=== PATIENT | female | born 1995 | race Caucasian/White ===

== ENCOUNTER 2017-01-23 19:55 | Emergency (ER) | payer MEDICAID ==
[2017-01-23 20:49] LABS: microscopic required? YES; urine erythrocyte TRACE (NEGATIVE)
[2017-01-23 20:59] LABS: BASOPHIL % 0.7 % (0-2); RED CELL DISTRIBUTION WIDTH 14.9 % (11.5-14.5)
[2017-01-23 21:00] LABS: PLATELET COUNT 420 x10^3mcL (130-400)
[2017-01-23 21:12] LABS: CARBON DIOXIDE 30.4 mmol/L (21-32); CHLORIDE SERUM 105 mmol/L (98-107); CREATININE SERUM 0.5 mg/dL (0.6-1.0); GFR1 > 60 mL/min; GLUCOSE SERUM 92 mg/dL (74-106); POTASSIUM SERUM 3.8 mmol/L (3.5-5.1); SODIUM SERUM 142 mmol/L (136-145)
[2017-01-23 21:16] LABS: ALBUMIN 3.9 g/dL (3.4-5.0); ALKALINE PHOSPHATASE 56 U/L (46-116); ALT/SGPT 19 U/L (14-59); AST/SGOT 15 U/L (15-37); BILIRUBIN TOTAL 0.7 mg/dL (0.20-1.00); TOTAL PROTEIN, SERUM 7.2 g/dL (6.4-8.2)
[2017-01-23 21:32] VITALS: BP 100/60
== END 2017-01-23 21:32 | disposition home or self-care (01) ==
LOC: ED 19:55
PROVIDERS: Emergency Medicine
DX: N39.0 Urinary tract infection, site not specified (principal)

== ENCOUNTER 2017-07-23 16:14 | Emergency (ER) | payer MEDICAID ==
[2017-07-23 18:57] LABS: BASOPHIL % 0.4 % (0-2)
[2017-07-23 19:04] LABS: CALCIUM 9.1 mg/dL (8.5-10.1); CARBON DIOXIDE 28.9 mmol/L (21-32); CHLORIDE SERUM 106 mmol/L (98-107); CREATININE SERUM 0.5 mg/dL (0.6-1.0); GFR1 > 60 mL/min; GLUCOSE SERUM 92 mg/dL (74-106); SODIUM SERUM 140 mmol/L (136-145)
[2017-07-23 19:05] LABS: UA SPECIFIC GRAVITY <=1.005 (1.005-1.035); microscopic required? YES; urine erythrocyte TRACE (NEGATIVE)
[2017-07-23 19:07] LABS: PLATELET COUNT 471 x10^3mcL (130-400); RED CELL DISTRIBUTION WIDTH 14.6 % (11.5-14.5)
[2017-07-23 19:08] LABS: ALBUMIN 4.1 g/dL (3.4-5.0); ALKALINE PHOSPHATASE 60 U/L (46-116); ALT/SGPT 21 U/L (14-59); AMYLASE 53 U/L (25-115); AST/SGOT 37 U/L (15-37); BILIRUBIN TOTAL 0.7 mg/dL (0.20-1.00); LIPASE 113 IU/L (73-393); TOTAL PROTEIN, SERUM 7.9 g/dL (6.4-8.2)
[2017-07-23 20:13] VITALS: BP 124/76
== END 2017-07-23 20:13 | disposition home or self-care (01) ==
LOC: ED 16:14
PROVIDERS: Emergency Medicine
DX: R10.13 Epigastric pain (principal); R07.89 Other chest pain; Z90.89 Acquired absence of other organs; Z87.19 Personal history of other diseases of the digestive system
CPT/HCPCS: J1170; J2405; Q0092

== ENCOUNTER 2017-10-14 16:44 | Emergency (ER) | payer MEDICAID ==
[2017-10-14 20:44] LABS: BASOPHIL % 0.4 % (0-2); RED CELL DISTRIBUTION WIDTH 14.2 % (11.5-14.5)
[2017-10-14 20:45] LABS: PLATELET COUNT 416 x10^3mcL (130-400)
[2017-10-14 22:24] VITALS: BP 114/54
== END 2017-10-14 22:24 | disposition home or self-care (01) ==
LOC: ED 16:44
PROVIDERS: Emergency Medicine
DX: O26.891 Other specified pregnancy related conditions, first trimester (principal); R10.30 Lower abdominal pain, unspecified; M54.5 Low back pain; Z87.19 Personal history of other diseases of the digestive system; Z3A.01 Less than 8 weeks gestation of pregnancy
CPT/HCPCS: 36415

== ENCOUNTER 2017-10-30 05:06 | Emergency (ER) | payer MEDICAID ==
[~2017-10-30] VITALS: Ht 157.5 cm; Wt 63.5 kg
[2017-10-30 05:23] VITALS: Ht 157.5 cm; Wt 63.5 kg
[2017-10-30 06:42] LABS: BASOPHIL % 0.6 % (0-2)
[2017-10-30 06:45] LABS: UA SPECIFIC GRAVITY 1.025 (1.005-1.035); microscopic required? YES; urine erythrocyte TRACE (NEGATIVE)
[2017-10-30 06:49] LABS: PLATELET COUNT 443 x10^3mcL (130-400)
[2017-10-30 07:32] VITALS: BP 111/51
== END 2017-10-30 07:32 | disposition home or self-care (01) ==
LOC: ED 05:06
PROVIDERS: Emergency Medicine
DX: O26.891 Other specified pregnancy related conditions, first trimester (principal); O20.0 Threatened abortion; O21.1 Hyperemesis gravidarum with metabolic disturbance; Z3A.01 Less than 8 weeks gestation of pregnancy
CPT/HCPCS: 36415; Q0092; Q0162

== ENCOUNTER 2017-12-20 14:51 | Inpatient (IN) | payer MEDICAID ==
[~2017-12-20] VITALS: Ht 157.5 cm; Wt 63.2 kg
[2017-12-20 16:03] LABS: BASOPHIL % 0.4 % (0-2)
[2017-12-20 16:08] LABS: CALCIUM 9.3 mg/dL (8.5-10.1); CARBON DIOXIDE 14.4 mmol/L (21-32); CHLORIDE SERUM 102 mmol/L (98-107); CREATININE SERUM 0.5 mg/dL (0.6-1.0); GFR1 > 60 mL/min; GLUCOSE SERUM 71 mg/dL (74-106); POTASSIUM SERUM 3.8 mmol/L (3.5-5.1); SODIUM SERUM 136 mmol/L (136-145)
[2017-12-20 16:12] LABS: ALBUMIN 3.7 g/dL (3.4-5.0); ALKALINE PHOSPHATASE 53 U/L (46-116); ALT/SGPT 27 U/L (14-59); AMYLASE 53 U/L (25-115); AST/SGOT 21 U/L (15-37); BILIRUBIN TOTAL 1.75 mg/dL (0.20-1.00); LIPASE 106 IU/L (73-393); TOTAL PROTEIN, SERUM 7.7 g/dL (6.4-8.2)
[2017-12-20 16:18] LABS: PLATELET COUNT 414 x10^3mcL (130-400)
[2017-12-20 20:10] LABS: MAGNESIUM 1.5 mg/dL (1.8-2.4); PHOSPHOROUS 4.5 mg/dL (2.5-4.9)
[2017-12-20 20:14] VITALS: BP 106/68
[2017-12-20 20:14] LABS: T3 TOTAL 1.27 ng/mL
[2017-12-20 20:16] LABS: CHOLESTEROL/HDL RATIO 2.9
[2017-12-20 20:20] LABS: FREE T4 1.3 ng/dL (0.76-1.46)
[2017-12-20 20:28] LABS: FREE THYROXINE INDEX 3.9 ug/dL (1.4-4.5)
[2017-12-20 21:17] LABS: microscopic required? NO
[2017-12-20 21:30] LABS: UA SPECIFIC GRAVITY 1.025 (1.005-1.035); urine erythrocyte NEGATIVE (NEGATIVE)
[2017-12-20 21:38] LABS: AMPHETAMINE QUAL UR NONE DETECTED (NEG <=1000)
[2017-12-21 05:51] VITALS: BP 107/74
[2017-12-21 07:36] LABS: BASOPHIL % 0.4 % (0-2); PLATELET COUNT 375 x10^3mcL (130-400); RED CELL DISTRIBUTION WIDTH 14.1 % (11.5-14.5)
[2017-12-21 08:40] LABS: CALCIUM 7.8 mg/dL (8.5-10.1); CHLORIDE SERUM 106 mmol/L (98-107); CREATININE SERUM 0.3 mg/dL (0.6-1.0); GFR1 > 60 mL/min; GLUCOSE SERUM 68 mg/dL (74-106); POTASSIUM SERUM 3.6 mmol/L (3.5-5.1); SODIUM SERUM 134 mmol/L (136-145)
[2017-12-21 09:17] VITALS: BP 97/48
[2017-12-21] MEDS ORDERED: PYRIDOXINE HCL25 MG PO (09:26)
[2017-12-21] MEDS ORDERED: MECLIZINE HYDRO25 M1 PO (09:28)
[2017-12-21 09:34] VITALS: BP 97/48
== END 2017-12-21 10:22 | disposition home or self-care (01) | DRG 566 ==
LOC: ED 14:51 → DU 19:16
PROVIDERS: Family Medicine; Specialist
DX: O21.1 Hyperemesis gravidarum with metabolic disturbance (principal); E83.42 Hypomagnesemia; O99.012 Anemia complicating pregnancy, second trimester; E86.0 Dehydration; O99.282 Endocrine, nutritional and metabolic diseases complicating pregnancy, second trimester; E78.5 Hyperlipidemia, unspecified; Z53.29 Procedure and treatment not carried out because of patient's decision for other reasons; Z90.49 Acquired absence of other specified parts of digestive tract; Z3A.14 14 weeks gestation of pregnancy
CPT/HCPCS: 36600; 83880; 84439; J2550; J2765; J3475; J7030; J8597; Q0092; Q0162

== ENCOUNTER 2018-02-26 01:16 | Emergency (ER) | payer MEDICAID ==
[~2018-02-26] VITALS: Ht 157.5 cm; Wt 67.1 kg
[~2018-02-26 01:16] MED LIST: MECLIZINE HYDRO25 M1 PO; PYRIDOXINE HCL25 MG PO
[2018-02-26 01:25] VITALS: Ht 157.5 cm; Wt 67.1 kg
[2018-02-26 02:32] LABS: UA SPECIFIC GRAVITY <=1.005 (1.005-1.035); microscopic required? YES; urine erythrocyte NEGATIVE (NEGATIVE)
[2018-02-26 03:18] VITALS: BP 121/77
== END 2018-02-26 03:18 | disposition home or self-care (01) ==
LOC: ED 01:16
PROVIDERS: Emergency Medicine
DX: O26.892 Other specified pregnancy related conditions, second trimester (principal); O23.42 Unspecified infection of urinary tract in pregnancy, second trimester; Z3A.21 21 weeks gestation of pregnancy; Z90.49 Acquired absence of other specified parts of digestive tract

== ENCOUNTER 2018-03-14 13:00 | Emergency (ER) | payer MEDICAID ==
[~2018-03-14] VITALS: Ht 157.5 cm; Wt 68.2 kg
[2018-03-14 13:03] VITALS: Ht 157.5 cm; Wt 68.2 kg
[2018-03-14 15:25] VITALS: BP 106/66
== END 2018-03-14 15:25 | disposition home or self-care (01) ==
LOC: ED 13:00
DX: O23.42 Unspecified infection of urinary tract in pregnancy, second trimester (principal); Z3A.25 25 weeks gestation of pregnancy; Z90.49 Acquired absence of other specified parts of digestive tract
CPT/HCPCS: J2405; J7030

== ENCOUNTER 2018-10-10 18:18 | Emergency (ER) | payer MEDICAID ==
[~2018-10-10] VITALS: Ht 165.1 cm; Wt 74.8 kg
[2018-10-10 19:24] VITALS: Ht 165.1 cm; Wt 74.8 kg
[2018-10-10 22:13] LABS: BASOPHIL % 1.1 % (0-2)
[2018-10-10 22:23] LABS: PLATELET COUNT 473 x10^3mcL (130-400); RED CELL DISTRIBUTION WIDTH 14.6 % (11.5-14.5)
[2018-10-10 22:24] LABS: CALCIUM 9.4 mg/dL (8.5-10.1); CARBON DIOXIDE 25.9 mmol/L (21-32); CHLORIDE SERUM 103 mmol/L (98-107); CREATININE SERUM 0.6 mg/dL (0.6-1.0); GFR1 > 60 mL/min; GLUCOSE SERUM 91 mg/dL (74-106); POTASSIUM SERUM 3.7 mmol/L (3.5-5.1); SODIUM SERUM 140 mmol/L (136-145)
[2018-10-10 22:29] LABS: ALBUMIN 4.2 g/dL (3.4-5.0); ALKALINE PHOSPHATASE 80 U/L (46-116); ALT/SGPT 28 U/L (14-59); AST/SGOT 18 U/L (15-37); BILIRUBIN TOTAL 0.63 mg/dL (0.20-1.00); LIPASE 159 IU/L (73-393); TOTAL PROTEIN, SERUM 8.6 g/dL (6.4-8.2)
[2018-10-10 22:53] VITALS: BP 120/78
== END 2018-10-10 22:53 | disposition home or self-care (01) ==
LOC: ED 18:18
PROVIDERS: Emergency Medicine
DX: S30.0XXA Contusion of lower back and pelvis, initial encounter (principal); N93.8 Other specified abnormal uterine and vaginal bleeding; K21.9 Gastro-esophageal reflux disease without esophagitis; Z90.89 Acquired absence of other organs; W18.39XA Other fall on same level, initial encounter; Y93.89 Activity, other specified; Y92.89 Other specified places as the place of occurrence of the external cause; Y99.8 Other external cause status
CPT/HCPCS: 36415; J1885; Q0092

== ENCOUNTER 2019-06-15 22:32 | Emergency (ER) | payer MEDICAID ==
[~2019-06-15] VITALS: Ht 157.5 cm; Wt 81.9 kg
[2019-06-16 00:05] LABS: BASOPHIL % 0.7 % (0-2)
[2019-06-16 00:10] LABS: PLATELET COUNT 447 x10^3mcL (130-400); RED CELL DISTRIBUTION WIDTH 14.6 % (11.5-14.5)
[2019-06-16 00:16] LABS: UA SPECIFIC GRAVITY <=1.005 (1.005-1.035); microscopic required? YES; urine erythrocyte NEGATIVE (NEGATIVE)
[2019-06-16 00:18] LABS: CALCIUM 8.8 mg/dL (8.5-10.1); CARBON DIOXIDE 24.8 mmol/L (21-32); CHLORIDE SERUM 108 mmol/L (98-107); CREATININE SERUM 0.6 mg/dL (0.6-1.0); GFR1 > 60 mL/min; GLUCOSE SERUM 101 mg/dL (74-106); POTASSIUM SERUM 4.2 mmol/L (3.5-5.1); SODIUM SERUM 142 mmol/L (136-145)
[2019-06-16 00:23] LABS: ALKALINE PHOSPHATASE 72 U/L (46-116); ALT/SGPT 18 U/L (14-59); AST/SGOT 10 U/L (15-37); BILIRUBIN TOTAL 0.3 mg/dL (0.20-1.00); CHOLESTEROL 163 mg/dL (<200); CHOLESTEROL/HDL RATIO 2.8; HDL CHOLESTEROL 59 mg/dL (40-60); TOTAL PROTEIN, SERUM 7.4 g/dL (6.4-8.2); TRIGLYCERIDES 97 mg/dL (<150)
[2019-06-16 00:34] LABS: ALBUMIN 3.2 g/dL (3.4-5.0)
[2019-06-16 02:40] VITALS: BP 101/59
== END 2019-06-16 03:00 | disposition home or self-care (01) ==
LOC: ED 22:32
PROVIDERS: Specialist
DX: N39.0 Urinary tract infection, site not specified (principal); Z90.89 Acquired absence of other organs
CPT/HCPCS: J0696; J1885; J2405; J3010; J7030; Q0092

== ENCOUNTER 2019-06-29 16:06 | Emergency (ER) | payer MEDICAID ==
[~2019-06-29] VITALS: Ht 160 cm; Wt 83.5 kg
[2019-06-29 16:25] VITALS: Ht 160 cm; Wt 83.5 kg
[2019-06-29 19:28] VITALS: BP 100/41
== END 2019-06-29 19:28 | disposition home or self-care (01) ==
LOC: ED 16:06
DX: R51 Headache (principal); R11.2 Nausea with vomiting, unspecified; R42 Dizziness and giddiness; Z90.89 Acquired absence of other organs; Z98.890 Other specified postprocedural states
CPT/HCPCS: J0780; J1200; J1885

== ENCOUNTER 2019-09-29 19:05 | Emergency (ER) | payer OTHER, MEDICAID ==
[~2019-09-29] VITALS: Ht 157.5 cm; Wt 83.0 kg
[2019-09-29 19:25] VITALS: Ht 157.5 cm; Wt 83.0 kg
[2019-09-30 01:58] VITALS: BP 120/80
== END 2019-09-30 01:58 | disposition home or self-care (01) ==
LOC: ED 19:05
DX: M54.5 Low back pain (principal); K21.9 Gastro-esophageal reflux disease without esophagitis; Z90.89 Acquired absence of other organs; V49.59XA Passenger injured in collision with other motor vehicles in traffic accident, initial encounter; Y93.I9 Activity, other involving external motion; Y92.413 State road as the place of occurrence of the external cause; Y99.8 Other external cause status

== ENCOUNTER 2019-11-07 20:28 | Emergency (ER) | payer MEDICAID ==
[~2019-11-07] VITALS: Ht 157.5 cm; Wt 86.2 kg
[2019-11-07 20:41] VITALS: Ht 157.5 cm; Wt 86.2 kg
[2019-11-07 21:23] LABS: BASOPHIL % 1.6 % (0-2)
[2019-11-07 21:25] LABS: PLATELET COUNT 500 x10^3mcL (130-400); RED CELL DISTRIBUTION WIDTH 14.7 % (11.5-14.5)
[2019-11-07 21:53] LABS: CALCIUM 9.9 mg/dL (8.5-10.1); CARBON DIOXIDE 23.2 mmol/L (21-32); CHLORIDE SERUM 105 mmol/L (98-107); CREATININE SERUM 0.5 mg/dL (0.6-1.0); GFR1 > 60 mL/min; GLUCOSE SERUM 100 mg/dL (74-106); POTASSIUM SERUM 4.1 mmol/L (3.5-5.1); SODIUM SERUM 140 mmol/L (136-145)
[2019-11-07 21:58] LABS: ALBUMIN 3.9 g/dL (3.4-5.0); ALKALINE PHOSPHATASE 75 U/L (46-116); ALT/SGPT 23 U/L (14-59); AST/SGOT 15 U/L (15-37); BILIRUBIN TOTAL 0.5 mg/dL (0.20-1.00)
[2019-11-07 21:59] LABS: TOTAL PROTEIN, SERUM 8.4 g/dL (6.4-8.2)
[2019-11-08 04:21] VITALS: BP 122/76
== END 2019-11-08 04:21 | disposition home or self-care (01) ==
LOC: ED 20:28
DX: N93.9 Abnormal uterine and vaginal bleeding, unspecified (principal); D25.9 Leiomyoma of uterus, unspecified
CPT/HCPCS: 36415; J1885; J7030; Q0092; Q0162

== ENCOUNTER → 2020-07-18 | Emergency (ER) | payer MEDICAID ==
[~2020-07-18] VITALS: Ht 157.5 cm; Wt 88.9 kg
[2020-07-18 17:25] VITALS: Ht 157.5 cm; Wt 88.9 kg
[2020-07-18 18:12] LABS: CALCIUM 9.3 mg/dL (8.5-10.1); CARBON DIOXIDE 26.4 mmol/L (21-32); CHLORIDE SERUM 105 mmol/L (98-107); CREATININE SERUM 0.6 mg/dL (0.6-1.0); GFR1 > 60 mL/min; GLUCOSE SERUM 116 mg/dL (74-106); POTASSIUM SERUM 3.9 mmol/L (3.5-5.1); SODIUM SERUM 139 mmol/L (136-145)
[2020-07-18 18:15] LABS: BASOPHIL % 0.5 % (0-2); PLATELET COUNT 481 x10^3mcL (130-400); RED CELL DISTRIBUTION WIDTH 14.9 % (11.5-14.5)
[2020-07-18 20:30] VITALS: BP 123/77
== END ==
LOC: ED 17:12
PROVIDERS: Emergency Medicine
DX: D25.9 Leiomyoma of uterus, unspecified (principal); N83.202 Unspecified ovarian cyst, left side; Z90.89 Acquired absence of other organs; Z87.19 Personal history of other diseases of the digestive system